=== PATIENT | male | born 2000 | race Two or more races ===

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

== ENCOUNTER 2020-08-13 20:10 | Emergency (ER) | payer MEDICAID, OTHER ==
[~2020-08-13] VITALS: Ht 185.4 cm; Wt 127.0 kg
[~2020-08-13 20:10] MED LIST changes: +ALBUTEROL2.5 MG/3 M HHN
--- NOTE | 2020-08-13 20:20 | NUR ---
ED Nurse Note: Patient is came to the ED from home with complaints of chest tightness and wheezing since last night. rescue inhaler "every 30 minutes no longer effective" Patient has hx of asthma. Denies fever, chills, cough.
[2020-08-13 20:23] VITALS: BP 145/82
--- NOTE | 2020-08-13 20:30 | NUR ---
BP 130/86, HR 108, Resp 18, 96% room air.
[2020-08-13] MEDS: Albuterol/Ipratropium 3ml neb HHN SCH ×2 (20:33→20:34)
--- NOTE | 2020-08-13 20:39 | Emergency Room Report ---
History of Present Illness General Chief Complaint: Asthma Source: Patient Present Illness HPI 20-year-old male with history of asthma currently using albuterol inhaler here complaining of 2-day worsening wheezing just. Denies any chest pain at this time. Denies any diarrhea, cough, sore throat. Reports that he has not been tested for Covid past several months. Denies tobacco smoke, drug use, vaping. Appears to be statting 92% [facility]. Full sentences. Is in no respiratory distress. No retractions noted. Denies fever and chills. Has not taken medication for symptom relief. Wheezing noted upon auscultation of lungs. 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 COVID-19 Screening: Negative COVID-19 COVID-19 Testing Source: [employer] Patient History Past Medical History: see triage record Past Surgical History: none Pertinent Family History: none Immunizations: UTD Reviewed Nursing Documentation: PMH: Agreed; PSxH: Agreed Nursing Documentation-PMH Past Medical History: No History, Except For Hx Cardiac Problems: No Hx Hypertension: No Hx Pacemaker: No Hx Asthma: Yes Hx COPD: No Hx Diabetes: No Hx Cancer: No Hx Gastrointestinal Problems: No Hx Dialysis: No Hx Neurological Problems: No Hx Cerebrovascular Accident: No Hx Seizures: No Review of Systems All Other Systems: negative except mentioned in HPI Physical Exam Vital Signs Date Time Temp Pulse Resp B/P (MAP) Pulse Ox O2 Delivery O2 Flow Rate FiO2 08/13/20 20:15 98.8 120 18 145/82 (103) 92 Room Air 08/13/20 20:23 92 Sp02 EP Interpretation: reviewed, abnormal - Tachycardic, O2 sat 93% on room air General Appearance: well appearing, alert, non-toxic Head: normocephalic, atraumatic Eyes: bilateral eye normal inspection, bilateral eye PERRL ENT: normal pharynx, no angioedema Neck: supple, no meningismus Respiratory: chest non-tender, no rhonchi, no respiratory distress, no retraction, no accessory muscle use, wheezing - Diffuse Cardiovascular #1: regular rate, rhythm, no edema Gastrointestinal: non tender, soft Rectal: deferred Musculoskeletal: back normal Neurologic: alert, motor strength/tone normal, oriented x3, sensory intact, responsive, speech normal Psychiatric: judgement/insight normal, memory normal, mood/affect normal, no suicidal/homicidal ideation Skin: no rash Lymphatic: no adenopathy Procedures Critical Care Time Critical Care Time Total critical care time; approximately 31 minutes. Due to a high probability of clinically significant, life threatening deterioration, the patient required my highest level of preparedness to intervene emergently and I personally spent this critical care time directly and personally managing the patient. This critical care time included obtaining a history; examining the patient; pulse oximetry; ordering and reviewing of studies; arranging urgent treatment with development of a management plan; evaluation of patient's response to treatment; frequent reassessment; and, discussions with other providers. This critical care time was performed to assess and manage the high probability of imminent, life-threatening deterioration that could result in multiorgan failure it was exclusive of separate billable procedures and treating other patients and [facility] keli time. Please see MDM section and the rest of the note for further information on patient assessment and treatment. Medical Decision Making PA Attestation All diagnoses and treatment plans were reviewed and discussed with my supervising physician Dr. Cortes Diagnostic Impression: Primary Impression: Asthma exacerbation Additional Impression: URI (upper respiratory infection) ER Course 20-year-old male with history of asthma currently using albuterol inhaler here complaining of 2-day worsening wheezing just. Denies any chest pain at this time. Denies any diarrhea, cough, sore throat. Reports that he has not been tested for Covid past several months. Denies tobacco smoke, drug use, vaping. Appears to be statting 92% [facility]. Full sentences. Is in no respiratory distress. No retractions noted. Denies fever and chills. Has not taken medication for symptom relief. Wheezing noted upon auscultation of lungs. No other abnormality noted Ddx considered but are not limited to: bronchitis, PNA, URI viral, bacterial bronchitis, asthma exacerbation, respiratory distress, Covid pneumonia Vital signs: are WNL, pt. is afebrile H&PE are most consistent with: Asthma exacerbation, URI ORDERS: Chest x-ray, azithromycin, prednisone, Phenergan, albuterol ED INTERVENTIONS: 1 treatment of albuterol and ipratropium nebulizer treatment, dexamethasone, NS bolus I signed out the patient to Dr. Cortes at 9PM DISCHARGE: At this time pt. is stable for d/c to home. Will provide printed patient care instructions, and any necessary prescriptions. Care plan and follow up instructions have been discussed with the patient prior to discharge. Take medication as directed, follow primary care provider, get tested for Covid, if worsening symptoms return to the emergency room Tachycardia most likely secondary to asthma exacerbation Chest X-Ray Diagnostic Results Chest X-Ray Diagnostic Results : Chest X-Ray Ordered: Yes # of Views/Limited/Complete: 1 View Indication: Other - wheezing PA Xray: Interpretation reviewed, by supervising MD, and agrees with findings. Interpretation: no consolidation, no effusion, no pneumothorax Impression: No acute disease Electronically Signed by: Kevin Robles PA-C Last Vital Signs Date Time Temp Pulse Resp B/P (MAP) Pulse Ox O2 Delivery O2 Flow Rate FiO2 08/13/20 20:23 98.8 18 145/82 92 Room Air 08/13/20 20:23 120 92 Disposition: HOME, SELF-CARE Condition: Stable Scripts Albuterol Sulfate (VENTOLIN HFA) 18 Gm Hfa.aer.ad 2 PUFFS INH EVERY 6 HOURS, #18 GM 0 Refills Prov: Kevin Martinez 08/13/20 Promethazine Hcl (PROMETHAZINE HCL*) 6.25 Mg/5 Ml Syrup 5 ML ORAL Q8H, #120 ML 0 Refills Prov: Kevin Martinez 08/13/20 Prednisone* (PREDNISONE*) 20 Mg Tablet 40 MG ORAL DAILY for 5 Days, #10 TAB Prov: Kevin Martinez 08/13/20 Azithromycin* (ZITHROMAX*) 250 Mg Tablet 250 MG ORAL DAILY, #6 TAB 0 Refills Take two tables once daily for 1 day, then one tablet once daily for 4 days. Prov: Kevin Martinez 08/13/20 Patient Instructions: Asthma, Adult Additional Instructions: Take medication as directed, follow primary care provider, get tested for Covid, if worsening symptoms return to the emergency room Kevin Martinez Aug 13, 2020 20:39
[2020-08-13] MEDS ORDERED: PROMETHAZI6.25 MG/1 ORAL (20:45)
[2020-08-13] MEDS ORDERED: ZITHROMAX250 MG ORAL (20:45)
[2020-08-13] MEDS ORDERED: PREDNISONE20 MG ORAL (20:45)
[2020-08-13] MEDS ORDERED: VENTOLIN HFA18 GM INH (20:45)
--- NOTE | 2020-08-13 21:45 | NUR ---
144/88, HR 101, O2 sat 97 % room air, denies any chest pain at this time.
--- NOTE | 2020-08-13 21:51 | NUR ---
ER DISCHARGE NOTE: Patient is cleared to be discharged per ERMD, pt is aox4, on room air, with stable vital signs. pt was given dc and prescription instructions, pt was able to verbalize understanding, pt id band and iv site removed without complications. pt is able to ambulate with steady gait. pt took all belongings.
--- NOTE | 2020-08-14 14:36 | Diagnostic Imaging Report ---
Indication: Shortness of breath Technique: One view of the chest Comparison: 09/22/2016 Findings: Lungs and pleural spaces are clear. Heart size is normal. No significant change Impression: No acute process
== END 2020-08-13 21:52 | disposition home or self-care (01) ==
LOC: EMR 20:57
DX: J45.901 Unspecified asthma with (acute) exacerbation (principal); J06.9 Acute upper respiratory infection, unspecified; Z79.899 Other long term (current) drug therapy; Z91.013 Allergy to seafood
CPT/HCPCS: 71045; 94640; 96360; 96372; J1100; Z7502; 99291; J7620